=== PATIENT | male | born 1995 | race Caucasian/White ===

== ENCOUNTER 2022-03-31 10:19 | Inpatient (IN) | payer SELFPAY ==
[~2022-03-31] VITALS: Ht 177.8 cm; Wt 67.9 kg
[2022-03-31] MEDS ORDERED: BOOSTRIX/ADACEL VACCINE (DIPHTH/PERTUSS/ACELL/TETANUS) 0.5ML SYR IM ONE (10:35)
[2022-03-31 12:24] LABS: BASO % 0.2 % (0.0-1.0); EOS % 0.1 % (0.0-3.0); HEMATOCRIT 47.9 % (42.0-52.0); HEMOGLOBIN 15.7 g/dl (13.5-17.5); LYMPH # 1.2 10^3/uL (1.5-5.0); LYMPH % 8.4 % (24.0-44.0); MEAN CORPUSCULAR HEMOGLOBIN 27.3 pg (27.0-33.0); MEAN CORPUSCULAR HGB CONC 32.8 g/dl (32.0-36.5); MEAN CORPUSCULAR VOLUME 83.2 fl (80.0-96.0); MONO # 0.6 10^3/uL (0.0-0.8); MONO % 4.5 % (2.0-8.0); NEUTROPHILS # 12.1 10^3/uL (1.5-8.5); NEUTROPHILS % 86.4 % (36.0-66.0); PLATELET COUNT, AUTOMATED 328 10^3/uL (150-450); RED BLOOD COUNT 5.76 10^6/uL (4.30-6.10)
[2022-03-31 12:50] LABS: BILIRUBIN,DIRECT < 0.1 MG/DL (<0.4)
[2022-03-31 12:51] LABS: ALBUMIN 3.9 G/DL (3.2-5.2); ALKALINE PHOSPHATASE 70 U/L (46-116); ALT/SGPT 40 U/L (7.0-40); AST/SGOT 36 U/L (<34); BILIRUBIN,TOTAL 0.3 MG/DL (0.3-1.2); BLOOD UREA NITROGEN 21 MG/DL (9-23); CALCIUM LEVEL 9.9 MG/DL (8.5-10.1); CARBON DIOXIDE LEVEL 26 MMOL/L (20-31); CHLORIDE LEVEL 103 MMOL/L (98-107); GLOMERULAR FILTRATION RATE > 60.0 (>60); GLUCOSE, FASTING 98 MG/DL (60-100); POTASSIUM SERUM 5.1 MMOL/L (3.5-5.1); SODIUM LEVEL 136 MMOL/L (136-145); TOTAL PROTEIN 7.2 G/DL (5.7-8.2)
[2022-03-31] MEDS ORDERED: ceFAZolin SOD 2 GM in IV 1 EA IV ONE (12:55)
[2022-03-31] MEDS ORDERED: MORPHINE 4 MG/ML 1ML VIAL IV ONE (12:55)
[2022-03-31] MEDS ORDERED: TETANUS IMMUNE GLOBULIN (HUMAN) 250 UNITS/ML SYRINGE IM.IMMUN ONE (12:55)
[2022-03-31] MEDS ORDERED: NS 1,000 ML IV SCH (13:45)
[2022-03-31] MEDS ORDERED: HOME MED LIST COMPLETE! XX SCH (14:05)
[2022-03-31 14:54] LABS: RSV AMPLIFICATION NEGATIVE (NEGATIVE)
[2022-03-31] MEDS ORDERED: ONDANSETRON 4MG 2ML VIAL As Ordered ONE (15:30)
[2022-03-31] MEDS ORDERED: LIDOCAINE 2% 100MG/5ML SDV (FOR ANES.) As Ordered ONE (15:30)
[2022-03-31] MEDS ORDERED: KETOROLAC 60MG 2ML VIAL As Ordered ONE (15:30)
[2022-03-31] MEDS ORDERED: fentaNYL 100 MCG/2 ML INJECTION As Ordered ONE (15:30)
[2022-03-31] MEDS ORDERED: propofoL 200 MG/20 ML VIAL As Ordered ONE (15:30)
[2022-03-31] MEDS ORDERED: MIDAZOLAM INJ 2MG/2ML VIAL (J2250 PER 1MG) As Ordered ONE (15:30)
[2022-03-31] MEDS ORDERED: ceFAZolin 1GM VIAL As Ordered ONE (15:42)
[2022-03-31] MEDS ORDERED: METOCLOPRAMIDE INJ 10MG/2ML VIAL As Ordered ONE (16:45)
[2022-03-31] MEDS ORDERED: HYDROMORPHONE HCL 0.5 MG/ 0.5 ML SYRINGE (J1170 PER 1) IV PRN (17:30)
[2022-03-31] MEDS ORDERED: ACETAMINOPHEN TAB 650MG DOSE (2X325MG) PO PRN (17:30)
[2022-03-31] MEDS: oxyCODONE 5MG TAB PO PRN (18:14)
[2022-03-31] MEDS: HYDROMORPHONE HCL 0.5 MG/ 0.5 ML SYRINGE (J1170 PER 1) IV PRN (18:18)
[2022-03-31 19:00] VITALS: BP 119/60
[2022-03-31] MEDS: NS 1,000 ML IV SCH (19:08)
[2022-03-31 19:30] VITALS: BP 126/70
[2022-03-31 20:00] VITALS: BP 114/58
[2022-03-31 21:00] VITALS: BP 106/58
[2022-03-31] MEDS: ceFAZolin SOD 2 GM in IV 1 EA IV SCH (21:57)
[2022-03-31 22:00] VITALS: BP 108/60
[2022-03-31] MEDS ORDERED: IBUPROFEN 600MG TAB PO PRN (22:00)
[2022-03-31 23:00] VITALS: BP 120/59
[2022-04-01] VITALS: BP 110/61
[2022-04-01] MEDS: oxyCODONE 5MG TAB PO PRN ×2 (04:44→14:06)
[2022-04-01] MEDS: NS 1,000 ML IV SCH ×3 (04:46→22:09)
[2022-04-01] MEDS: ceFAZolin SOD 2 GM in IV 1 EA IV SCH ×2 (05:54→14:06)
[2022-04-01 08:00] VITALS: BP 113/59
[2022-04-01] MEDS: HYDROMORPHONE HCL 0.5 MG/ 0.5 ML SYRINGE (J1170 PER 1) IV PRN (08:33)
[2022-04-01 16:00] VITALS: BP 113/52
[2022-04-01 20:13] VITALS: BP 124/66
[2022-04-02] MEDS: HYDROMORPHONE HCL 0.5 MG/ 0.5 ML SYRINGE (J1170 PER 1) IV PRN ×2 (03:14→06:26)
[2022-04-02 03:55] VITALS: BP 120/64
[2022-04-02] MEDS: NS 1,000 ML IV SCH ×2 (06:26→14:23)
[2022-04-02 08:14] VITALS: BP 124/68
[2022-04-02] MEDS ORDERED: MIDAZOLAM INJ 2MG/2ML VIAL (J2250 PER 1MG) As Ordered ONE (09:47)
[2022-04-02] MEDS ORDERED: fentaNYL 100 MCG/2 ML INJECTION As Ordered ONE ×2 (09:47→09:49)
[2022-04-02] MEDS ORDERED: propofoL 200 MG/20 ML VIAL As Ordered ONE ×2 (09:47→13:03)
[2022-04-02] MEDS ORDERED: LIDOCAINE 2% 100MG/5ML SDV (FOR ANES.) As Ordered ONE (09:47)
[2022-04-02] MEDS ORDERED: ceFAZolin 2 GM/D5W 50 ML IV BAG As Ordered ONE (10:41)
[2022-04-02] MEDS ORDERED: BUPIVACAINE HCL 0.5% 30ML VIAL As Ordered ONE (10:43)
[2022-04-02] MEDS ORDERED: ONDANSETRON 4MG 2ML VIAL As Ordered ONE (10:45)
[2022-04-02] MEDS ORDERED: KETOROLAC 60MG 2ML VIAL As Ordered ONE (10:56)
[2022-04-02] MEDS ORDERED: ACETAMINOPHEN 1000MG 100ML IV BAG As Ordered ONE (10:56)
[2022-04-02] MEDS ORDERED: MORPHINE 2 MG/ML 1ML VIAL IV PRN (12:50)
[2022-04-02] MEDS ORDERED: ONDANSETRON 4MG 2ML VIAL IV PRN (12:50)
[2022-04-02] MEDS ORDERED: oxyCODONE 5MG TAB PO PRN (12:50)
[2022-04-02] MEDS ORDERED: LR 1,000 ML IV SCH (12:50)
[2022-04-02] MEDS ORDERED: PERC5TAB12 PO (12:57)
[2022-04-02] MEDS: fentaNYL 100 MCG/2 ML INJECTION IV PRN ×3 (13:14→13:25)
[2022-04-02] MEDS ORDERED: LIDOCAINE 1% SDV 5ML VIAL PN STA (13:17)
[2022-04-02] MEDS ORDERED: ROPIvacaine 0.5% 30ML VIAL PN STA (13:17)
[2022-04-02] MEDS ORDERED: MIDAZOLAM INJ 2MG/2ML VIAL (J2250 PER 1MG) IV PRN (13:20)
[2022-04-02] MEDS ORDERED: fentaNYL 100 MCG/2 ML INJECTION IV PRN (13:20)
[2022-04-02 14:16] VITALS: BP 133/78
[2022-04-02] MEDS: oxyCODONE 5MG TAB PO PRN (14:22)
[2022-04-02] MEDS ORDERED: OXYC-517 PO (15:15)
== END 2022-04-02 17:54 | disposition home or self-care (01) | DRG 316 ==
LOC: M ED 10:19 → M ED INP 15:26 → M PCU 18:59
PROVIDERS: ADMIT Orthopaedic Surgery; ATTEND Orthopaedic Surgery
PROC: 0PN Upper Bones, Release (ICD-10-PCS; 2022-04-02)
PROC: 03L90ZZ Occlusion of Right Ulnar Artery, Open Approach (ICD-10-PCS; 2022-04-02)
PROC: 0PSM04Z Reposition Right Carpal with Internal Fixation Device, Open Approach (ICD-10-PCS; principal; 2022-04-02 15:00)
DX: S62.011 Displaced fracture of distal pole of navicular [scaphoid] bone of right wrist (principal); S62.16 Fracture of pisiform; S64.01XA Injury of ulnar nerve at wrist and hand level of right arm, initial encounter; W20.8XXA Other cause of strike by thrown, projected or falling object, initial encounter; Y93.9 Activity, unspecified; Y99.9 Unspecified external cause status; Y92.9 Unspecified place or not applicable

== ENCOUNTER → 2022-04-08 | Outpatient (CLI) | payer SELFPAY ==
[~2022-04-08] MED LIST: OXYC-517 PO; PERC5TAB12 PO
== END ==
LOC: M SOG 09:10
PROVIDERS: ATTEND Physician Assistant
DX: Z47.89 Encounter for other orthopedic aftercare (principal); Z98.890 Other specified postprocedural states